=== PATIENT | male | born 1945 | race Caucasian/White ===

== ENCOUNTER 2019-03-07 03:05 | Emergency (ER) | payer OTHER, MEDICARE ==
[2019-03-07 03:33] VITALS: TEMP 96.1; O2SAT 99
--- NOTE | 2019-03-07 03:57 | ED.PDOC ---
History of Present Illness - General Chief Complaint: GI Problem Stated Complaint: Constipation, blood in stool Time Seen by Provider: 03/07/19 03:27 - History of Present Illness Initial Comments: The patient is a 73 year old male who presents to the ED for rectal bleeding and constipation. He states that for the past three weeks he has had difficulty with bowel movements and requires straining. He notices a small amount of blood on the tissue with wiping and occasionally a small amount of blood on his stool. He does not have any melanic stools. He does not notice blood in the toilet. He does not feel weak or short of breath. He talked to his primary care doctor at [facility] who thought it was likely secondary to constipation/straining and recommended metamucil which he started taking yesterday. no new changes today. No other complaints at this time. Review of Systems - Review of Systems Constitutional: Denies: chills, fever, malaise EENTM: States: no symptoms reported Respiratory: Denies: cough, short of breath Cardiology: Denies: chest pain, palpitations Gastrointestinal/Abdominal: States: constipation, other - rectal bleeding. Denies: abdominal pain Genitourinary: States: no symptoms reported Musculoskeletal: States: no symptoms reported Skin: States: no symptoms reported Neurological: States: no symptoms reported Endocrine: States: no symptoms reported Hematologic/Lymphatic: States: no symptoms reported All other Systems: Reviewed and Negative Past Medical History (General) - Patient Medical History Hx Stroke: No Hx Asthma: Yes - vs seasonal allergies Hx of COPD: No Hx Cardiac Disorders: Yes - A fib Hx Congestive Heart Failure: Yes Hx Pacemaker: No Hx Hypertension: Yes Hx Diabetes: Yes Hx MRSA: No Surgical History: no surgical history - Vaccination History Hx Tetanus, Diphtheria Vaccination: Yes Hx Influenza Vaccination: No Hx Pneumococcal Vaccination: Yes - Social History Hx Tobacco Use: No Hx Alcohol Use: No Family Medical History - Family History Father Family History: Unknown Living Status: Unknown Hx Cardiac Disease: Yes - [place] Physical Exam - Physical Exam General Appearance: Alert, Comfortable, No apparent distress Neck: non-tender, full range of motion, supple Respiratory: no respiratory distress Gastrointestinal/Abdominal: non tender, soft, no organomegaly Rectal Exam: other - Normal rectal tone, trace blood, no external hemorrhoid Neurologic: no motor/sensory deficits, alert, oriented x 3 Skin Exam: normal color, warm/dry Progress - Progress Progress: 03/07/19 04:18 Patient reassessed, blood counts okay. He is ambulatory around the Emergency Department. Repeat abdominal exam is benign. He is on metamucil, will add stool softener. Discussed importance of close outpatient follow up with his PCP and GI at [facility]. Discussed potential other sources of bleeding including inflammatory bowel disease and malignancy. Home care instructions and return indications reviewed. Departure - Departure Clinical Impression: Rectal bleeding Time of Disposition: 04:20 Disposition: Discharge to Home or Self Care Condition: Fair Departure Forms: ED Discharge - Pt. Copy, Patient Portal Self Enrollment Instructions: DI for Gastrointestinal Bleeding Diet: resume usual diet Activity: increase activity as tolerated Referrals: Ganga Bryant III, MD [Primary Care Provider] - 1-2 Weeks Prescriptions: Docusate Sodium [Colace Cap] 100 mg PO BID #30 cap Home Medications: Ambulatory Orders Aspirin 325 mg PO DAILY #0 tab 04/26/15 Furosemide Inj [Lasix Inj] 20 mg IV DAILY #30 vial 04/26/15 Lisinopril [Prinivil] 10 mg PO DAILY #30 tab 04/26/15 Potassium Chloride Tab [K-Dur] 20 meq PO DAILYBK #30 tab 04/26/15 Docusate Sodium [Colace Cap] 100 mg PO BID #30 cap 03/07/19
[2019-03-07 04:26] VITALS: BP 152/68
== END 2019-03-07 04:26 | disposition home or self-care (01) ==
LOC: ER 03:05
DX: K62.5 Hemorrhage of anus and rectum (principal); E11.9 Type 2 diabetes mellitus without complications; I50.9 Heart failure, unspecified; I11.0 Hypertensive heart disease with heart failure; I15.0 Renovascular hypertension; I48.91 Unspecified atrial fibrillation; J45.909 Unspecified asthma, uncomplicated

== ENCOUNTER 2019-03-16 09:28 | Emergency (ER) | payer MEDICARE, OTHER ==
[2019-03-16] MEDS ORDERED: SODIUM CHL 0.9% 50ML VIAL 3 ML, ALBUTEROL SULFATE NEBS 15 MG NEB ONE ×2 (10:51)
[2019-03-16] MEDS ORDERED: CALCIUM GLUCONATE INJ 1 GM/10 ML VIAL IV ONE (10:51)
[2019-03-16] MEDS ORDERED: INSULIN, REG.(HUMAN) 100 U/ML VIAL IV ONE (10:52)
[2019-03-16] MEDS ORDERED: DEXTROSE 50% 25 GM/50 ML SYG IV ONE (10:52)
[2019-03-16] MEDS ORDERED: SODIUM BICARBONATE VIAL 50 MEQ/50 ML VIAL IV ONE (10:52)
--- NOTE | 2019-03-16 10:57 | RAD ---
EXAM DESCRIPTION: Chest,1 View CLINICAL HISTORY: weakness COMPARISON: Chest radiograph dated April 26, 2015 TECHNIQUE: One-view radiograph of the chest FINDINGS: Cardiac silhouette again shows cardiomegaly. Pulmonary vascularity is within normal limits. Subtle linear opacities in the retrocardiac regions, most compatible with atelectasis. Costophrenic angles are sharp. No pneumothorax. No acute osseous abnormality. IMPRESSION: 1. Cardiomegaly without congestive heart failure. 2. Subtle linear opacities in the retrocardiac regions, most compatible with atelectasis. Underlying infiltrate cannot be entirely excluded. Electronically signed by: Ganga Otero MD 03/16/2019 10:56 AM [employer]YROLL ACCOUNTING SPECIALIST
[2019-03-16] MEDS ORDERED: SODIUM CHLORIDE 0.9% 50 ML VIAL ONE (11:28)
[2019-03-16] MEDS ORDERED: ALBUTEROL SULFATE 2.5 MG/3 ML VIAL NEB ONE (11:28)
[2019-03-16 11:40] VITALS: O2SAT 100
--- NOTE | 2019-03-16 12:06 | ED.PDOC ---
History of Present Illness - General Chief Complaint: General Stated Complaint: TOLD TO COME TO ER BY NE D/T HIGH POTASSIUM Time Seen by Provider: 03/16/19 09:52 - History of Present Illness Initial Comments: 73 y/o M Patient presents to the emergency department complaining of generalized weakness for the last several days. He had lab work done by the [facility] 2 days ago and was called today and told to get to the emergency room because his potassium was high. He also reports associated constipation but denies any vomiting or diarrhea. He has not noticed any dysuria or significant changes in urine output. He denies any chest pain or shortness of breath. Symptoms are currently moderate in severity and it progressively worsened over time. He denies any history of renal disease or issues in the past. Allergies/Adverse Reactions: Allergies NO KNOWN ALLERGY Allergy (Verified 04/24/15 18:40) Home Medications: Ambulatory Orders Furosemide Inj [Lasix Inj] 20 mg IV DAILY #30 vial 04/26/15 Lisinopril [Prinivil] 10 mg PO DAILY #30 tab 04/26/15 Potassium Chloride Tab [K-Dur] 20 meq PO DAILYBK #30 tab 04/26/15 Docusate Sodium [Colace Cap] 100 mg PO BID #30 cap 03/07/19 Rivaroxaban [Xarelto] 20 mg PO DAILY 03/16/19 Review of Systems - Review of Systems Constitutional: Denies: chills, fever EENTM: Denies: nose congestion, throat swelling Respiratory: Denies: short of breath, wheezing Cardiology: States: edema. Denies: chest pain Gastrointestinal/Abdominal: States: constipation. Denies: diarrhea, nausea, vomiting Genitourinary: Denies: dysuria, hematuria Musculoskeletal: Denies: back pain, joint pain, muscle pain Neurological: States: weakness - generalized. Denies: headache, numbness Past Medical History (General) - Patient Medical History Hx Stroke: No Hx Asthma: Yes - vs seasonal allergies Hx of COPD: No Hx Cardiac Disorders: Yes - A fib Hx Congestive Heart Failure: Yes Hx Pacemaker: No Hx Hypertension: Yes Hx Diabetes: No Hx Cancer: No Hx Hepatitis C: No Hx MRSA: No - Vaccination History Hx Tetanus, Diphtheria Vaccination: No Hx Influenza Vaccination: No Hx Pneumococcal Vaccination: Yes Immunizations Up to Date: No - Social History Hx Tobacco Use: No Hx Alcohol Use: No Hx Substance Use: No Hx Substance Use Treatment: No Hx Depression: No Family Medical History - Family History Father Family History: Unknown Living Status: Unknown Hx Cardiac Disease: Yes - [place] Physical Exam - Physical Exam General Appearance: Alert, Ill Appearing Eye Exam: bilateral normal Ears, Nose, Throat: normal ENT inspection, normal pharynx Neck: supple, normal inspection Respiratory: lungs clear, normal breath sounds Cardiovascular/Chest: normal peripheral pulses, regular rate, rhythm, other - 1+ pitting edema to BLE Gastrointestinal/Abdominal: normal bowel sounds, non tender, soft Extremity: normal range of motion, normal inspection 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 General weakness without focal deficits. Skin Exam: warm/dry, pallor Comments: Vital Signs (72 hours) 03/16/19 09:42 Temperature 97.4 F L Pulse Rate Pulse Rate [ 88 MONITOR] Respiratory 20 Rate Blood Pressure 165/92 [RA] O2 Sat by Pulse 100 Oximetry Progress - Progress Progress: 11:30 AM recheck all lab and imaging results discussed with patient along with need to transfer for nephrology evaluation and emergent dialysis. The patient has voiced understanding and agrees. Confirm that the patient has secondary insurance through Medicare prior to initiating the transfer process with [facility]. 12 PM: Spoke with Dr. Ibrahim at [facility] who will accept the patient in transfer. 03/16/19 12:32 Because of the severity of the patient's illness and the fact that there are multiple transverse going on with limited ambulance resources available the patient may potentially need to be transferred by air ambulance to prevent any further delay in his transfer to definitive care. The patient was notified of this. - Results/Orders Results/Orders: 03/16/19 10:03 Telemetry ONCE 03/16/19 10:15 EKG STAT Laboratory Results - last 24 hr 03/16/19 03/16/19 03/16/19 10:00 10:00 10:00 WBC 8.7 RBC 3.82 L Hgb 12.2 L Hct 36.8 L MCV 96.5 H MCH 31.9 H MCHC 33.0 RDW 14.7 H Plt Count 243 MPV 7.7 Absolute Neuts (auto) 7.40 H Absolute Lymphs (auto) 0.40 L Absolute Monos (auto) 0.70 Absolute Eos (auto) 0.20 Absolute Basos (auto) 0.10 Neutrophils % 84.9 H Lymphocytes % 4.6 L Monocytes % 7.7 Eosinophils % 2.1 Basophils % 0.7 Sodium 139 Potassium 6.8 H* Chloride 110 Carbon Dioxide 13 L* Anion Gap 22.8 H BUN 220 H* Creatinine 11.64 H* BUN/Creatinine Ratio 18.9 Random Glucose 117 H Serum Osmolality Not Reportable Calcium 9.1 Magnesium 2.8 H Total Bilirubin 0.7 AST 15 ALT 20 Alkaline Phosphatase 55 Troponin I Serum Total Protein 6.9 Albumin 3.3 Globulin 3.6 H Albumin/Globulin Ratio 0.9 L 03/16/19 10:00 WBC RBC Hgb Hct MCV MCH MCHC RDW Plt Count MPV Absolute Neuts (auto) Absolute Lymphs (auto) Absolute Monos (auto) Absolute Eos (auto) Absolute Basos (auto) Neutrophils % Lymphocytes % Monocytes % Eosinophils % Basophils % Sodium Potassium Chloride Carbon Dioxide Anion Gap BUN Creatinine BUN/Creatinine Ratio Random Glucose Serum Osmolality Calcium Magnesium Total Bilirubin AST ALT Alkaline Phosphatase Troponin I 0.19 H* Serum Total Protein Albumin Globulin Albumin/Globulin Ratio CXR: IMPRESSION: 1. Cardiomegaly without congestive heart failure. 2. Subtle linear opacities in the retrocardiac regions, most compatible with atelectasis. Underlying infiltrate cannot be entirely excluded. Electronically signed by: Ganga Otero MD 03/16/2019 10:56 AM E[employer] MAN[employer]FACTURING TECH EKG: Interpreted by myself at 9:54 AM. Atrial fibrillation rate 83. Normal axis. No ST elevation and nonspecific ST-T changes. - EKG/XRAY/CT CT Ordered: No CT Interpretation Call Back: No Departure - Departure Clinical Impression: Hyperkalemia ARF (acute renal failure) Qualifiers: Acute renal failure type: unspecified Qualified Code(s): N17.9 - Acute kidney failure, unspecified Time of Disposition: 12:26 Condition: Fair Home Medications: Ambulatory Orders Furosemide Inj [Lasix Inj] 20 mg IV DAILY #30 vial 04/26/15 Lisinopril [Prinivil] 10 mg PO DAILY #30 tab 04/26/15 Potassium Chloride Tab [K-Dur] 20 meq PO DAILYBK #30 tab 04/26/15 Docusate Sodium [Colace Cap] 100 mg PO BID #30 cap 03/07/19 Rivaroxaban [Xarelto] 20 mg PO DAILY 03/16/19 Transfer to Outside Facility - Transfer Information Decision to Transfer Date: 03/16/19 Decision to Transfer Time: 11:00 Reason for Transfer: required specialist not available Accepting Provider:: Dr. Ibrahim Accepting Facility: [facility]
[2019-03-16 13:06] VITALS: BP 141/74; TEMP 98
== END 2019-03-16 13:30 | disposition home or self-care (01) ==
LOC: ER 09:28
DX: N17.9 Acute kidney failure, unspecified (principal); E87.5 Hyperkalemia; I48.91 Unspecified atrial fibrillation; I50.9 Heart failure, unspecified; I11.0 Hypertensive heart disease with heart failure; Z79.899 Other long term (current) drug therapy
CPT/HCPCS: 36415; 71045; 80053; 83735; 84484; 85025; 93005; 94644; A4216; J7611

== ENCOUNTER 2020-01-03 15:50 | Emergency (ER) | payer OTHER ==
--- NOTE | 2020-01-03 16:55 | ED.PDOC ---
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 Lazo in [facility] who presents to ED with 2 hour h/o blood in urinary bag. States last night while taking off his clothes the catheter pulled and caused pain in penile area that resolved. He has had no other penile, scrotal or abdominal pain. He denies fever, chills, NVD. Reports that he takes Xarelto daily. States he has an appointment with Dr. Lazo tomorrow for evaluation of placing a suprapubic catheter. Allergies/Adverse Reactions: Allergies NO KNOWN ALLERGY Allergy (Verified 04/24/15 18:40) Home Medications: Ambulatory Orders Furosemide Inj [Lasix Inj] 20 mg IV DAILY #30 vial 04/26/15 Lisinopril [Prinivil] 10 mg PO DAILY #30 tab 04/26/15 Potassium Chloride Tab [K-Dur] 20 meq PO DAILYBK #30 tab 04/26/15 Docusate Sodium [Colace Cap] 100 mg PO BID #30 cap 03/07/19 Rivaroxaban [Xarelto] 20 mg PO DAILY 03/16/19 levoFLOXacin [Levaquin] 500 mg PO DAILY #10 tab 01/03/20 Review of Systems - Review of Systems Constitutional: Denies: chills, fever EENTM: Denies: blurred vision, nose congestion, throat pain Respiratory: Denies: cough, short of breath Cardiology: Denies: chest pain, edema, palpitations, syncope Gastrointestinal/Abdominal: Denies: abdominal pain, diarrhea, nausea, vomiting Genitourinary: States: hematuria Musculoskeletal: Denies: back pain Skin: States: no symptoms reported All other Systems: Reviewed and Negative Past Medical History (General) - Patient Medical History Hx Stroke: No Hx Asthma: Yes - vs seasonal allergies Hx of COPD: No Hx Cardiac Disorders: Yes - A fib Hx Congestive Heart Failure: Yes Hx Pacemaker: No Hx Hypertension: Yes Hx Diabetes: No Hx Cancer: No Hx Hepatitis C: No Hx MRSA: No - Vaccination History Hx Tetanus, Diphtheria Vaccination: No Hx Influenza Vaccination: No Hx Pneumococcal Vaccination: Yes - Social History Hx Tobacco Use: No Hx Alcohol Use: No Hx Substance Use: No Hx Substance Use Treatment: No Hx Depression: No Family Medical History - Family History Father Family History: Unknown Living Status: Unknown Hx Cardiac Disease: Yes - [place] Physical Exam - Physical Exam General Appearance: Alert, Comfortable, No apparent distress Neck: non-tender, full range of motion, supple Cardiovascular/Respiratory: regular rate, rhythm, normal peripheral pulses, normal breath sounds, no respiratory distress Gastrointestinal/Abdominal: non tender, soft, no pulsatile mass Male Genital Exam: other - Sullivan catheter in place. Ureathral meatus enlarged due to chronic catheter. No penile or scrotal erythema, edema or tenderness Back Exam: no CVA tenderness Extremity: normal range of motion, non-tender Neurologic: no motor/sensory deficits, alert, normal mood/affect Skin Exam: normal color, warm/dry Progress - Progress Progress: 01/03/20 18:22 Patient has indwelling Sullivan catheter for the past 10 months. Presents today with 1 day history of blood in urine bag. On exam, catheter is in place with no penile erythema, edema or tenderness and no scrotal abnormality. Platelets and coagulation factors are within normal limits. CTA shows evidence of bladder wall thickening concerning for urinary tract infection. I have discussed with patient results and he feels comfortable going home and already has an appointment scheduled with his urologist tomorrow. Treated with Levaquin in ED and will start oral antibiotics. Strict return precautions given. - Results/Orders Results/Orders: CT ABD/PELVIS FINDINGS: The lung bases are clear. The liver appears unremarkable. The spleen and pancreas appear unremarkable. No adrenal masses. The kidneys appear unremarkable. No hydronephrosis or definite ureteral calculi. The gallbladder is visualized. No aneurysmal dilatation of the aorta. No bowel obstruction. There is marked wall thickening and inflammatory change surrounding the urinary bladder with a Sullivan catheter in place. Findings are concerning for cystitis. Possibility of underlying mass is not excluded. Stranding is present in the perivesicular space and space of Retzius. IMPRESSION: Marked wall thickening and inflammatory change in the urinary bladder with a Sullivan catheter in place. Findings are consistent with cystitis and may reflect hemorrhagic cystitis. Possibly of an underlying mass is not excluded No additional evidence of acute process in the abdomen or pelvis 01/03/20 17:35 URINE CULTURE W/COLONY COUNT Stat 01/03/20 17:57 cefTRIAXone SODIUM [Rocephin] 1 gm Sodium Chl 0.9% 50Ml Min-Bag+ [NS 50ml MINI-BAG+] 50 ml IVPB ONCE Laboratory Results - last 24 hr 01/03/20 01/03/20 01/03/20 17:00 17:00 17:00 WBC 10.0 RBC 4.53 L Hgb 14.2 Hct 41.0 L MCV 90.6 MCH 31.5 H MCHC 34.8 RDW 14.4 Plt Count 275 MPV 7.9 Absolute Neuts (auto) 8.40 H Absolute Lymphs (auto) 0.90 L Absolute Monos (auto) 0.50 Absolute Eos (auto) 0.10 Absolute Basos (auto) 0.10 Neutrophils % 84.0 H Lymphocytes % 9.1 L Monocytes % 5.1 Eosinophils % 0.8 L Basophils % 1.0 PT 10.7 INR 1.08 PTT (SP) 26.3 Sodium 137 Potassium 3.7 Chloride 103 Carbon Dioxide 25 Anion Gap 12.7 BUN 14 Creatinine 1.12 BUN/Creatinine Ratio 12.5 Random Glucose 199 H Serum Osmolality 279.9 Calcium 8.7 Total Bilirubin 0.8 AST 13 ALT 11 Alkaline Phosphatase 70 Serum Total Protein 7.4 Albumin 3.2 Globulin 4.2 H Albumin/Globulin Ratio 0.8 L Urine Color Urine Appearance Urine pH Ur Specific [place] Urine Protein Urine Glucose (UA) Urine Ketones Urine Blood Urine Nitrite Urine Bilirubin Urine Urobilinogen Ur Leukocyte Esterase Urine RBC Urine WBC Ur Epithelial Cells Amorphous Sediment Urine Bacteria 01/03/20 17:35 WBC RBC Hgb Hct MCV MCH MCHC RDW Plt Count MPV Absolute Neuts (auto) Absolute Lymphs (auto) Absolute Monos (auto) Absolute Eos (auto) Absolute Basos (auto) Neutrophils % Lymphocytes % Monocytes % Eosinophils % Basophils % PT INR PTT (SP) Sodium Potassium Chloride Carbon Dioxide Anion Gap BUN Creatinine BUN/Creatinine Ratio Random Glucose Serum Osmolality Calcium Total Bilirubin AST ALT Alkaline Phosphatase Serum Total Protein Albumin Globulin Albumin/Globulin Ratio Urine Color Yellow Urine Appearance Turbid Urine pH 6.0 Ur Specific [place] >= 1.030 Urine Protein >=300 H Urine Glucose (UA) Negative Urine Ketones Negative Urine Blood Large H Urine Nitrite Positive H Urine Bilirubin Negative Urine Urobilinogen 0.2 Ur Leukocyte Esterase Negative Urine RBC Tntc H Urine WBC 5-10 H Ur Epithelial Cells 1-3 Amorphous Sediment 3+ Urine Bacteria 3+ H Departure - Departure Clinical Impression: Acute cystitis with hematuria, Indwelling Sullivan catheter present Time of Disposition: 18:25 Disposition: Discharge to Home or Self Care Condition: Good Departure Forms: ED Discharge - Pt. Copy, Patient Portal Self Enrollment Instructions: Urinary Tract Infection, Adult (DC) Diet: resume usual diet Referrals: Ganga Bryant III, MD [Primary Care Provider] - 1-2 Days Prescriptions: levoFLOXacin [Levaquin] 500 mg PO DAILY #10 tab Home Medications: Ambulatory Orders Furosemide Inj [Lasix Inj] 20 mg IV DAILY #30 vial 04/26/15 Lisinopril [Prinivil] 10 mg PO DAILY #30 tab 04/26/15 Potassium Chloride Tab [K-Dur] 20 meq PO DAILYBK #30 tab 04/26/15 Docusate Sodium [Colace Cap] 100 mg PO BID #30 cap 03/07/19 Rivaroxaban [Xarelto] 20 mg PO DAILY 03/16/19 levoFLOXacin [Levaquin] 500 mg PO DAILY #10 tab 01/03/20 Additional Instructions: Follow up with your Urologist tomorrow as scheduled
--- NOTE | 2020-01-03 17:44 | CT ---
EXAM DESCRIPTION: Abdoment/Pelvis w/o Contrast CLINICAL HISTORY: 74 years Male hematuria from urinary catheter COMPARISON: None. TECHNIQUE: Contiguous axial images obtained through the abdomen and pelvis without IV contrast. Reformatted images obtained. This exam was performed according to our department optimization program which includes automated exposure control, adjustment of the mA and/or kv according to patient size and/or use of iterative reconstruction technique. FINDINGS: The lung bases are clear. The liver appears unremarkable. The spleen and pancreas appear unremarkable. No adrenal masses. The kidneys appear unremarkable. No hydronephrosis or definite ureteral calculi. The gallbladder is visualized. No aneurysmal dilatation of the aorta. No bowel obstruction. There is marked wall thickening and inflammatory change surrounding the urinary bladder with a Sullivan catheter in place. Findings are concerning for cystitis. Possibility of underlying mass is not excluded. Stranding is present in the perivesicular space and space of Retzius. IMPRESSION: Marked wall thickening and inflammatory change in the urinary bladder with a Sullivan catheter in place. Findings are consistent with cystitis and may reflect hemorrhagic cystitis. Possibly of an underlying mass is not excluded No additional evidence of acute process in the abdomen or pelvis Electronically signed by: Val Jin MD 01/03/2020 5:42 PM CDT
[2020-01-03] MEDS ORDERED: cefTRIAXone SODIUM 1 GM in SODIUM CHL 0.9% 50ML MIN-BAG+ 50 ML IVPB ONE (17:57)
[2020-01-03] MEDS ORDERED: levoFLOXacin 500 MG TAB PO ONE (18:00)
[2020-01-03 18:35] VITALS: TEMP 96.4
[2020-01-03 19:03] VITALS: BP 120/75; O2SAT 99
== END 2020-01-03 19:02 | disposition home or self-care (01) ==
LOC: ER 15:50
DX: N30.00 Acute cystitis without hematuria (principal); I48.91 Unspecified atrial fibrillation; N32.0 Bladder-neck obstruction; I50.9 Heart failure, unspecified; I11.0 Hypertensive heart disease with heart failure; Z46.9 Encounter for fitting and adjustment of unspecified device; Z79.01 Long term (current) use of anticoagulants

== ENCOUNTER 2020-01-31 00:05 | Emergency (ER) | payer OTHER ==
--- NOTE | 2020-01-31 00:58 | ED.PDOC ---
History of Present Illness - General Chief Complaint: Problem Stated Complaint: leaking johnston bag Time Seen by Provider: 01/31/20 00:56 Source: patient, RN notes reviewed, Vital Signs reviewed Exam Limitations: no limitations - History of Present Illness Initial Comments: Patient is a 74-year-old white male who presents with complaints of his Johnston bag leaking. This is been ongoing for the last 5 days. The Johnston is not causing the patient any pain or problems. The leaking is constant. It is leaking where the Johnston inserts into the leg bag. Patient denies any pain Timing/Duration: week Quality: mild Onset Location: other - At the insertion of the leg bag from the Johnston. Radiation: none Activites at Onset: none Prior abdominal problems: none Sexual intercourse history: not active Improving Factors: nothing Worsening Factors: nothing Associated Symptoms: denies symptoms Allergies/Adverse Reactions: Allergies NO KNOWN ALLERGY Allergy (Verified 04/24/15 18:40) Home Medications: Ambulatory Orders Furosemide Inj [Lasix Inj] 20 mg IV DAILY #30 vial 04/26/15 Lisinopril [Prinivil] 10 mg PO DAILY #30 tab 04/26/15 Potassium Chloride Tab [K-Dur] 20 meq PO DAILYBK #30 tab 04/26/15 Docusate Sodium [Colace Cap] 100 mg PO BID #30 cap 03/07/19 Rivaroxaban [Xarelto] 20 mg PO DAILY 03/16/19 levoFLOXacin [Levaquin] 500 mg PO DAILY #10 tab 01/03/20 Review of Systems - Review of Systems Constitutional: States: no symptoms reported, see HPI EENTM: States: no symptoms reported Respiratory: States: no symptoms reported Cardiology: States: no symptoms reported Gastrointestinal/Abdominal: States: no symptoms reported Genitourinary: States: see HPI, other - Leaking Johnston bag Musculoskeletal: States: no symptoms reported Skin: States: no symptoms reported Neurological: States: no symptoms reported Endocrine: States: no symptoms reported Hematologic/Lymphatic: States: no symptoms reported All other Systems: Reviewed and Negative Past Medical History (General) - Patient Medical History Hx Stroke: No Hx Asthma: Yes - vs seasonal allergies Hx of COPD: No Hx Cardiac Disorders: Yes - A fib Hx Congestive Heart Failure: Yes Hx Pacemaker: No Hx Hypertension: Yes Hx Diabetes: No Hx Cancer: No Hx Hepatitis C: No Hx MRSA: No - Vaccination History Hx Tetanus, Diphtheria Vaccination: No Hx Influenza Vaccination: No Hx Pneumococcal Vaccination: Yes - Social History Hx Tobacco Use: No Hx Alcohol Use: No Hx Substance Use: No Hx Substance Use Treatment: No Hx Depression: No Family Medical History - Family History Father Family History: Unknown Living Status: Unknown Hx Cardiac Disease: Yes - [place] Physical Exam - Physical Exam General Appearance: Alert, Comfortable, No apparent distress, Well Developed, Well Groomed, Well Hydrated, Well Nourished Eyes, Ears, Nose, Throat Exam: PERRL/EOMI, pharynx normal Neck: non-tender, full range of motion, supple Cardiovascular/Respiratory: regular rate, rhythm, no M/R/G, normal peripheral pulses, no JVD, normal breath sounds, no respiratory distress Gastrointestinal/Abdominal: normal bowel sounds, non tender, soft Male Genital Exam: other - Deferred Back Exam: normal inspection, no CVA tenderness, no vertebral tenderness Neurologic: rock duster II-XII nml as tested, no motor/sensory deficits, alert, normal mood/affect, oriented x 3 Skin Exam: normal color, warm/dry Lymphatic: no adenopathy Progress - Progress Progress: Differential diagnosis: Johnston failure, Johnston bag leak, UTI, traumatic rupture Johnston bag among others. 01/31/20 00:59 Leg bag changed by nursing with no further leakage. Patient is satisfied and was discharged home with an extra bag. Plan on discharge home. Patient has follow-up with urology in the next 2 weeks. Sherman Stout M.D. #[id number] Departure - Departure Clinical Impression: Johnston catheter problem Qualifiers: Encounter type: initial encounter Qualified Code(s): T83.9XXA - Unspecified complication of genitourinary prosthetic device, implant and graft, initial encounter Time of Disposition: 01:00 Disposition: Discharge to Home or Self Care Condition: Good Departure Forms: ED Discharge - Pt. Copy, Patient Portal Self Enrollment Instructions: How to Care for Your Johnston Catheter, Male Diet: resume usual diet Activity: increase activity as tolerated Referrals: Ganga Bryant III, MD [Primary Care Provider] - 1-5 Days Home Medications: Ambulatory Orders Furosemide Inj [Lasix Inj] 20 mg IV DAILY #30 vial 04/26/15 Lisinopril [Prinivil] 10 mg PO DAILY #30 tab 04/26/15 Potassium Chloride Tab [K-Dur] 20 meq PO DAILYBK #30 tab 04/26/15 Docusate Sodium [Colace Cap] 100 mg PO BID #30 cap 03/07/19 Rivaroxaban [Xarelto] 20 mg PO DAILY 03/16/19 levoFLOXacin [Levaquin] 500 mg PO DAILY #10 tab 01/03/20
[2020-01-31 01:27] VITALS: BP 166/87; TEMP 97.3; O2SAT 97
== END 2020-01-31 01:09 | disposition home or self-care (01) ==
LOC: ER 00:05
DX: T83.038A Leakage of other urinary catheter, initial encounter (principal); Y84.8 Other medical procedures as the cause of abnormal reaction of the patient, or of later complication, without mention of misadventure at the time of the procedure; I10 Essential (primary) hypertension; I48.91 Unspecified atrial fibrillation; I50.9 Heart failure, unspecified; Z79.899 Other long term (current) drug therapy; Z79.01 Long term (current) use of anticoagulants